=== PATIENT | male | born 1985 | race African-American/Black ===

== ENCOUNTER 2019-01-25 21:05 | Observation (INO) | payer MEDICARE ==
--- NOTE | 2019-01-25 21:17 | PDOC ---
Rapid Medical Evaluation Time Seen by Provider: 01/25/19 21:14 Medical Evaluation: 01/25/19 21:14 I have performed a brief in-person evaluation of this patient. The patient presents with a chief complaint of: Epigastric pain, possibly worse w/ food. Noticed that pain started shortly after pt started taking excedrin 2 week ago for dental pain. No change in BM, melena, BRBPR, n/v/f/c or SOB. No h/ o similar pain. Of note, seen by dental for toothache and told needs a root canal vs filling, pt to f/u Pertinent physical exam findings:stable and well cristofer w/ benign abd I have ordered the following:EKG The patient will proceed to the ED for further evaluation. Discharge Disposition - Diagnosis Epigastric pain - Referrals - Patient Instructions - Post Discharge Activity
[2019-01-25] MEDS ORDERED: TICAGRELOR 90 MG TABLET PO ONE ×2 (21:52→22:25)
[2019-01-25] MEDS ORDERED: ASPIRIN 81 MG CHEWABLE TABLETS PO ONE (21:52)
[2019-01-25] MEDS ORDERED: HEPARIN NA (PORCINE) 5,000 UNITS/ML 1ML VIAL IVPUSH ONE (21:52)
--- NOTE | 2019-01-25 21:58 | PDOC ---
History of Present Illness - General Chief Complaint: Pain Stated Complaint: ABD PAIN Time Seen by Provider: 01/25/19 21:14 History Source: Patient Exam Limitations: No Limitations - History of Present Illness Initial Comments: 01/25/19 21:54 HPI 33 YO AAM with no known medical history presenting with epigastric pain/mid sternal chest pain x 1 week, no radiating sx. sx worse with food. has been taking excedrin 2 tablets BID for his epigastric pain, making symptoms worse; he has been taking excedrin for his wisdom tooth ache, right lower molar. no family history of CAD/OK. Denies fever, chills, SOB, palpitation, dizziness, weakness, N, V, D, abdominal pain, bladder and bowel problems, leg swelling, No new changes in medications. No suspicious food intake Allergies: None Past Medical History: as documented in EMR/HPI Social history: No tobacco, or drug use. no cocaine or amphetamines; occasional etoh Surgical history: none Meds: as documented in EMR Review of systems Constitutional: no fevers or chills. HEENT: no headache or dizziness. No congestion. No visual/hearing disturbances. CVS: no syncope. +chest pain. Resp: no sob. No cough. Gastrointestinal: no nausea or vomiting, diarrhea. +abdominal pain. Genitourinary: no urinary sx, hematuria. MUSCULOSKELETAL: No joint pain and swelling. No neck or back pain. SKIN: no redness or skin changes, no discharge, no rash. No wounds. Hematologic: no easy bruising/bleeding. NEUROLOGIC: No headache, dizziness, LOC or altered mental status. No weakness, numbness or tingling. Psych: no anxiety or depression Allergic/Immunologic: no allergies All other systems reviewed and negative, or as documented in HPI. Physical exam: General: Well appearing, awake and alert, NAD. HEENT: NCAT, PERRL, EOMI, clear conjunctiva, anicteric, moist mucus membranes, clear oropharynx, no oral lesions.. Neck: neck supple, FROM Resp: CTAB, normal and even respirations, no respiratory distress CVS: RRR, no murmurs, 2+ peripheral pulses throughout, no peripheral edema Abdomen: soft, nondistended, +epigastric TTP, no peritoneal signs. Back: nontender, normal inspection and ROM MSK: no edema, ANTHONY x4, ROM intact. No clubbing or cyanosis. normal bulk and tone. Neuro: alert, no focal neuro deficits. Skin: warm and well perfused, cap refill <2 sec, normal color 01/25/19 22:33 01/25/19 23:59 Past History - Past Medical History Allergies/Adverse Reactions: Allergies Allergy/AdvReac Type Severity Reaction Status Date / Time No Known Allergies Allergy Verified 01/25/19 21:15 COPD: No - Suicide/Smoking/Psychosocial Hx Smoking History: Never smoked *Physical Exam - Vital Signs Last Vital Signs Temp Pulse Resp BP Pulse Ox 98.0 F 85 18 156/88 100 01/25/19 21:11 01/25/19 21:11 01/25/19 21:11 01/25/19 21:11 01/25/19 21:11 Heart Score/ECG Review #1 ECG reviewed & interpreted by me at: 21:35 General ECG Interpretation: Sinus Rhythm, Normal Rate, Normal Intervals Compared to previous ECG there are: Previous ECG unavail 01/25/19 21:59 EKG with NSR 70 bpm, ST elevations in V1-V3, I, AVL and upsloping, with reciprocal ST depression in III, AVF and TWI, nonspecific T wave flattening. normal intervals. ED Treatment Course - LABORATORY CBC & Chemistry Diagram: 01/25/19 22:26 01/25/19 22:26 - RADIOLOGY Radiology Studies Ordered: Category Date Time Status CHEST X-RAY PORTABLE* [RAD] Stat Radiology 01/25/19 21:52 Ordered Medical Decision Making - Medical Decision Making 01/25/19 21:57 DDx chest pain: ACS, coronary vasospasm, NSTEMI, arrhythmia, unstable angina, PE , dissection, PUD, esophageal spasm, GERD, gastritis, costochondritis, pneumonia , pleurisy, pericarditis/myocarditis. dehydration, electrolyte/metabolic derangements. VS reviewed wnl. EKG with NSR 70 bpm, ST elevations in V1-V3, I, AVL and upsloping, with reciprocal ST depression in III, AVF and TWI, nonspecific T wave flattening. normal intervals. given EKG and symptoms tele monitor, mildly hypertensive Oleg transfer for code Red/STEMI alert emergently based on atypical sx and abnormal EKG 01/25/19 21:59 called and spoke with monte cards, interventionalist Dr Ling and fellow Dr New - reviewed EKG, deemed not stemi alert, and more likely SENG will await trop, reassess and repeat EKG code red cancelled in interim. 01/26/19 00:00 - on reeval, sx improved with GI cocktail; ddx narrowed to GERD/ gastritis vs dyspepsia, medication effect from NSAIDS vs atypical ACS/coronary vasospasm. trop neg, repeat EKG unchanged however, due to abnormal EKG, SENG vs ischemia, and atypical sx. warrants obs tele for r/o ACS, serial trop/EKG and echo Admit for atypical cp,epigastric pain. Discussed results and management plan with pt and family member at bedside, agree with impression, treatment indications, recommendations and plan. admit to hospitalist service, Dr Davenport *DC/Admit/Observation/Transfer Diagnosis at time of Disposition: Epigastric pain, Abnormal EKG - Discharge Dispostion Condition at time of disposition: Fair Decision to Admit order: Yes Decision to Admit order Date/Time: 01/26/19 00:02 Decision to Admit Order Category Date Time Status Decision to Admit to Hospital Routine Admission 01/25/19 23:59 Ordered - Referrals - Patient Instructions - Post Discharge Activity
[2019-01-25] MEDS ORDERED: ASPIRIN 81 MG CHEWABLE TABLETS ONE (22:24)
[2019-01-25] MEDS ORDERED: HEPARIN NA (PORCINE) 5,000 UNITS/ML 1ML VIAL ONE (22:26)
[2019-01-25 22:31] LABS: BASO % 0.6 % (0-2.0); EOS % 1.4 % (0-4.5); HEMATOCRIT 45.4 % (35.4-49); HEMOGLOBIN 14.3 GM/dL (11.7-16.9); MCH 23.5 pg (25.7-33.7); MCHC 31.6 g/dl (32.0-35.9); MEAN CELL VOLUME 74.4 fl (80-96); MEAN PLT VOLUME 8.3 fl (7.5-11.1); MONO % 8.6 % (3.8-10.2); NEUT % 54.4 % (42.8-82.8); PLATELET COUNT 226 K/MM3 (134-434); RDW 15.2 % (11.9-15.9); WHITE BLOOD COUNT 6.2 K/mm3 (4.0-10.0)
[2019-01-25] MEDS ORDERED: MAG HYDROX/AL HYDROX/SIMETH 30 ML UNIT-DOSE CUP PO ONE ×2 (22:35)
[2019-01-25 22:52] LABS: INR 1.02 (0.83-1.09)
[2019-01-25 23:07] LABS: ALBUMIN 4.2 g/dl (3.4-5.0); ALK PHOS 98 U/L (45-117); ANION GAP 6 MMOL/L (8-16); BILIRUBIN,TOTAL 0.3 mg/dL (0.2-1); BLOOD UREA NITROGEN 12.8 mg/dL (7-18); CHLORIDE 106 mmol/L (98-107); CO2 29 mmol/L (21-32); CREATININE 0.9 mg/dL (0.55-1.3); GLUCOSE,RANDOM 110 mg/dL (74-106); MAGNESIUM 2.4 mg/dL (1.8-2.4); POTASSIUM 4.4 mmol/L (3.5-5.1); SGOT/AST 26 U/L (15-37); SGPT/ALT 44 U/L (13-61); SODIUM 140 mmol/L (136-145); TOT PROT 7.5 g/dl (6.4-8.2)
[2019-01-25] MEDS ORDERED: MAG HYDROX/AL HYDROX/SIMETH 30 ML UNIT-DOSE CUP ONE (23:17)
--- NOTE | 2019-01-25 23:20 | PN ---
Teaching Attending Note Name of Resident: Messi Greco ATTENDING PHYSICIAN STATEMENT I saw and evaluated the patient. I reviewed the resident's note and discussed the case with the resident. I agree with the resident's findings and plan as documented. SUBJECTIVE: Patient is a 33 year old man with no significant PMH who presents with epigastric pain/mid sternal chest pain for 1 week. Pain in nonradiating. He started taking Excedrin for toothache 2 weeks ago and his epigastric pain started one week later. He continued to take Excedrin and it made his pain worse and food also made it worse. No family history of premature CAD/SD. Denies fever, chills, SOB, palpitation, dizziness, weakness, nausea, vomiting, diarrhea, bladder and bowel problems or leg swelling, No new changes in medications and no unusual or street food intake. Nonsmoker and denies alcohol abuse or use of any illicit drugs. OBJECTIVE: Alert Vital Signs Period Temp Pulse Resp BP Sys/Castañeda Pulse Ox Last 24 Hr 98.0 F 85 18 156/88 100 HEENT: No Jaundice, eye redness or discharge, PERRLA, EOMI. Normocephalic, atraumatic. External ears are normal and hearing is grossly intact. No nasal discharge. Neck: Supple, nontender. No palpable adenopathy or thyromegaly. No JVD Chest: Good effort. Clear to auscultation and percussion. Heart: Regular. No S3, rub or murmur Abdomen: Not distended, soft, epigastric tenderness and no HSM. No rebound or guarding. Normal bowel sounds. Ext: Peripheral pulses intact. No leg edema. Skin: Warm and dry. No petechiae, rash or ecchymosis. Neuro: Alert. Oriented x3. CN 2-12 grossly intact. Sensation grossly intact in all four extremities and DTR are symmetric. Psych: Appropriate mood and affect. Good insight. Abnormal Lab Results 01/25/19 01/25/19 22:26 22:26 RBC 6.10 H MCV 74.4 L MCH 23.5 L MCHC 31.6 L Anion Gap 6 L Random Glucose 110 H Creatine Kinase 392 H ASSESSMENT AND PLAN: 1. Chest/epigastric pain - Pain atypical. Likely due to gastritis induced by Excedrin. Feeling better. Initial troponin is negative. EKG shows NSR 70 bpm, with ST elevations in V1-V3, I, AVL and ST depression in III, AVF and TWI; nonspecific T wave flattening. ER staff spoke with the jalousie installer and no additional intervention recommended at this time. Will monitor on telemetry, repeat EKG and troponin and get ECHO and urinalysis. He got Aspirin 162 mg, Brilinta, Heparin IV bolus and Mylanta in the ER. No acute abnormality on CXR. Counseled to avoid NSAIDS. Will trend CPK, give IV protonix and consult GI. Unclear if he has undiagnosed hypertension. Will monitor BP closely to decide if drug therapy is warranted. In the meantime, nonpharmacologic measures to control hypertension like weight loss, salt restriction and exercise discussed. 2. Obesity Counseled on the risks associated with obesity. Will provide patient all the necessary assistance, counseling and positive reinforcement to facilitate weight loss. Consult milking worker. 3. DVT prophylaxis - Lovenox 40 mg SQ q 24 hours. 4. Advance directives - Full code
--- NOTE | 2019-01-26 02:06 | HP ---
CHIEF COMPLAINT: Mid-Epigastric pain. HISTORY OF PRESENT ILLNESS: Pt is a 33 y/o M with no significant past medical history who presented to [facility] [place] due to mid-epigastric pain which has been present for 1 and a half weeks. Pt endorses that pain suddenly arose and is described as nonradiating, sharp, and a 7/10 in severity at it's peak. Pt endorses that he has been taking Excedrin during this time period as he has been suffering from a toothache. Pain is exacerbated by the excedrin. Pt denies ever experiencing this type of pain in the past. Denies shortness of breath, LOC, nausea/vomiting, or palpitations. Denies illicit drug use. PMH- None Social Hx- Denies tobacco or illicit drug use. Social Drinker SurgHx- Denies Allergies- Denies FH- Father healthy, Mother past away in car accident ER course was notable for: (1) ASA 162, Brilinta, Heparin Bolus (2) EKG: NSR 70 bpm, with ST elevations in V1-V3, I, AVL and ST depression in III, AVF and TWI; nonspecific T wave flattening. (3) HOME MEDICATIONS: REVIEW OF SYSTEMS CONSTITUTIONAL: Absent: fever, chills, diaphoresis, generalized weakness, malaise, loss of appetite, weight change HEENT: Absent: rhinorrhea, nasal congestion, throat pain, throat swelling, difficulty swallowing, mouth swelling, ear pain, eye pain, visual changes CARDIOVASCULAR: PRESENT chest pain RESPIRATORY: Absent: cough, shortness of breath, dyspnea with exertion, orthopnea, wheezing, stridor, hemoptysis GASTROINTESTINAL: Absent: abdominal pain, abdominal distension, nausea, vomiting, diarrhea, constipation, melena, hematochezia GENITOURINARY: Absent: dysuria, frequency, urgency, hesitancy, hematuria, flank pain, genital pain MUSCULOSKELETAL: Absent: myalgia, arthralgia, joint swelling, back pain, neck pain SKIN: Absent: rash, itching, pallor HEMATOLOGIC/IMMUNOLOGIC: Absent: easy bleeding, easy bruising, lymphadenopathy, frequent infections ENDOCRINE: Absent: unexplained weight gain, unexplained weight loss, heat intolerance, cold intolerance NEUROLOGIC: Absent: headache, focal weakness or paresthesias, dizziness, unsteady gait, seizure, mental status changes, bladder or bowel incontinence PSYCHIATRIC: Absent: anxiety, depression, suicidal or homicidal ideation, hallucinations. PHYSICAL EXAMINATION Vital Signs - 24 hr 01/25/19 21:11 Temperature 98.0 F Pulse Rate 85 Respiratory 18 Rate Blood Pressure 156/88 O2 Sat by Pulse 100 Oximetry (%) GENERAL: NAD HEAD: Normal with no signs of trauma. EYES:EOMI Sclera Clear EARS, NOSE, THROAT: MMM. NECK: Supple, No JVD appreciated. LUNGS: CTAB HEART: RRR S1S2. +TTP. ABDOMEN: Mid-epigastric tenderness. MUSCULOSKELETAL: FROM throughout LOWER EXTREMITIES: No CCE. NEUROLOGICAL: Cranial nerves II-XII intact. Normal speech. PSYCHIATRIC: Cooperative. Good eye contact. Appropriate mood and affect. SKIN: Warm, dry, normal turgor, no rashes or lesions noted, normal capillary refill. Laboratory Results - last 24 hr 01/25/19 01/25/19 01/25/19 22:26 22:26 22:26 WBC 6.2 RBC 6.10 H Hgb 14.3 Hct 45.4 MCV 74.4 L MCH 23.5 L MCHC 31.6 L RDW 15.2 Plt Count 226 MPV 8.3 Absolute Neuts (auto) 3.4 Neutrophils % 54.4 Lymphocytes % 35.0 Monocytes % 8.6 Eosinophils % 1.4 Basophils % 0.6 Nucleated RBC % 0 PT with INR 12.00 INR 1.02 Sodium 140 Potassium 4.4 Chloride 106 Carbon Dioxide 29 Anion Gap 6 L BUN 12.8 Creatinine 0.9 Est GFR (CKD-EPI)AfAm 127.80 Est GFR (CKD-EPI)NonAf 110.27 Random Glucose 110 H Calcium 9.0 Magnesium 2.4 Total Bilirubin 0.3 AST 26 ALT 44 Alkaline Phosphatase 98 Creatine Kinase 392 H Creatine Kinase Index 0.3 CK-MB (CK-2) 1.3 Troponin I < 0.02 Total Protein 7.5 Albumin 4.2 Lipase 01/25/19 22:26 WBC RBC Hgb Hct MCV MCH MCHC RDW Plt Count MPV Absolute Neuts (auto) Neutrophils % Lymphocytes % Monocytes % Eosinophils % Basophils % Nucleated RBC % PT with INR INR Sodium Potassium Chloride Carbon Dioxide Anion Gap BUN Creatinine Est GFR (CKD-EPI)AfAm Est GFR (CKD-EPI)NonAf Random Glucose Calcium Magnesium Total Bilirubin AST ALT Alkaline Phosphatase Creatine Kinase Creatine Kinase Index CK-MB (CK-2) Troponin I Total Protein Albumin Lipase 321 ASSESSMENT/PLAN: Pt is a 33 y/o M with no significant past medical history who presented to [facility] [place] due to mid-epigastric pain which has been present for 1 and a half weeks. #Atypical Chest Pain - EKG---> NSR 70 bpm, with ST elevations in V1-V3, I, AVL and ST depression in III, AVF and TWI; nonspecific T wave flattening. -Initial Trop Negative. Repeat pending. -Cardiology Consult -Echocardiogram -Tele monitoring -I.V Protonix. Day team to consider G.I Consult. #FEN No Fluids Monitor Electrolytes Regular Diet #DVT ppx: Lovenox SQ #Dispo: Tele Visit type - Emergency Visit Emergency Visit: Yes ED Registration Date: 01/25/19 Care time: The patient presented to the Emergency Department on the above date and was hospitalized for further evaluation of their emergent condition. - New Patient This patient is new to me today: Yes Date on this admission: 01/26/19 - Critical Care Critical Care patient: No
[2019-01-26 05:20] VITALS: BMI 32.2
--- NOTE | 2019-01-26 08:20 | PN ---
Progress Note (short form) - Note Progress Note: Patient is comfortable with no acute distress, feels better, stated that started to take Exedrin for his toothache that he had, ever since then started to bother his stomach. Denies having any chills or shortness of brain, no nausea or vomiting. Vital Signs Temperature 97.8 F 01/26/19 04:30 Pulse Rate 84 01/26/19 04:30 Respiratory Rate 20 01/26/19 04:30 Blood Pressure 122/74 01/26/19 04:30 O2 Sat by Pulse Oximetry (%) 98 01/26/19 04:30 GENERAL: The patient is awake, alert, and fully oriented, in no acute distress. HEAD: Normal with no signs of trauma. EYES: PERRL, extraocular movements intact, sclera anicteric, conjunctiva clear. ENT: Ears normal, oropharynx clear without exudates, moist mucous membranes. NECK: Trachea midline, full range of motion, supple. LUNGS: Breath sounds equal, clear to auscultation bilaterally, no wheezes, no crackles, no accessory muscle use. HEART: Regular rate and rhythm, S1, S2 without murmur, rub or gallop. ABDOMEN: Soft, nontender, nondistended, normoactive bowel sounds, no guarding, no rebound, no hepatosplenomegaly, no masses. EXTREMITIES: 2+ pulses, warm, well-perfused, no edema. NEUROLOGICAL: Cranial nerves II through XII grossly intact. Normal speech, gait not observed. PSYCH: Normal mood, normal affect. SKIN: Warm, dry, normal turgor, no rashes or lesions noted CBCD WBC 6.2 K/mm3 (4.0-10.0) 01/25/19 22: RBC 6.10 M/mm3 (4.00-5.60) H 01/25/19 22: Hgb 14.3 GM/dL (11.7-16.9) 01/25/19 22: Hct 45.4 % (35.4-49) 01/25/19 22: MCV 74.4 fl (80-96) L 01/25/19 22: MCHC 31.6 g/dl (32.0-35.9) L 01/25/19 22: RDW 15.2 % (11.9-15.9) 01/25/19 22:26 Plt Count 226 K/MM3 (134-434) 01/25/19 22:26 MPV 8.3 fl (7.5-11.1) 01/25/19 22:26 CMP Sodium 140 mmol/L (136-145) 01/25/19 22:26 Potassium 4.4 mmol/L (3.5-5.1) 01/25/19 22:26 Chloride 106 mmol/L (98-107) 01/25/19 22:26 Carbon Dioxide 29 mmol/L (21-32) 01/25/19 22:26 Anion Gap 6 MMOL/L (8-16) L 01/25/19 22:26 BUN 12.8 mg/dL (7-18) 01/25/19 22:26 Creatinine 0.9 mg/dL (0.55-1.3) 01/25/19 22:26 Random Glucose 110 mg/dL (74-106) H 01/25/19 22:26 Calcium 9.0 mg/dL (8.5-10.1) 01/25/19 22:26 Total Bilirubin 0.3 mg/dL (0.2-1) 01/25/19 22:26 AST 26 U/L (15-37) 01/25/19 22:26 ALT 44 U/L (13-61) 01/25/19 22:26 Alkaline Phosphatase 98 U/L (45-117) 01/25/19 22:26 Total Protein 7.5 g/dl (6.4-8.2) 01/25/19 22:26 Albumin 4.2 g/dl (3.4-5.0) 01/25/19 22:26 CARDIAC ENZYMES Creatine Kinase 392 U/L (26-308) H 01/25/19 22:26 Troponin I < 0.02 ng/ml (0.00-0.05) 01/25/19 22:26 Current Medications Generic Name Dose Route Start Last Admin Trade Name Freq PRN Reason Stop Dose Admin Enoxaparin Sodium 40 mg 01/26/19 10:00 Lovenox - SQ DAILY MANDIE Pantoprazole Sodium 40 mg 01/26/19 10:00 Protonix Iv IVPUSH DAILY MANDIE Home Medications Medication Instructions Recorded NK [No Known Home Medication] 01/26/19 EKG---> reviewed with Assessment and plan: Patient is a 33yo male with no significant past medical history who presented to ED. for having mid-epigastric pain which started after started taking Excedrin for having dental pain. # Midepigastric pain most likely due to having gastritis due to Exedrin/Nsaids use. will start the patient on Zantac po 150mg bid will repeat the EKG and troponins if all neg. will dc patient home as per discussion with . DVT ppx: Lovenox SQ Visit type - Emergency Visit Emergency Visit: Yes ED Registration Date: 01/25/19 Care time: The patient presented to the Emergency Department on the above date and was hospitalized for further evaluation of their emergent condition. - New Patient This patient is new to me today: Yes Date on this admission: 01/26/19 - Critical Care Critical Care patient: No - Discharge Referral Referred to [facility] No
[2019-01-26 08:33] LABS: BASO % 0.4 % (0-2.0); EOS % 1.2 % (0-4.5); HEMATOCRIT 45.2 % (35.4-49); HEMOGLOBIN 14.4 GM/dL (11.7-16.9); MCH 23.5 pg (25.7-33.7); MCHC 31.8 g/dl (32.0-35.9); MEAN CELL VOLUME 73.7 fl (80-96); MEAN PLT VOLUME 8.8 fl (7.5-11.1); MONO % 9.4 % (3.8-10.2); PLATELET COUNT 242 K/MM3 (134-434); RBC 6.14 M/mm3 (4.00-5.60); RDW 14.9 % (11.9-15.9)
[2019-01-26 08:54] LABS: ALBUMIN 4.2 g/dl (3.4-5.0); BILIRUBIN,TOTAL 0.4 mg/dL (0.2-1); BLOOD UREA NITROGEN 11.2 mg/dL (7-18); CALCIUM 9.1 mg/dL (8.5-10.1); CREATININE 0.8 mg/dL (0.55-1.3); MAGNESIUM 2.7 mg/dL (1.8-2.4); PHOSPHOROUS 3.7 mg/dL (2.5-4.9); POTASSIUM 4.6 mmol/L (3.5-5.1); TOT PROT 7.5 g/dl (6.4-8.2)
[2019-01-26 09:11] LABS: ACTIVATED PTT 28.7 SECONDS (25.2-36.5)
[2019-01-26 09:12] LABS: INR 0.98 (0.83-1.09); PROTHROMBIN TIME (PATIENT) 11.6 SEC (9.7-13.0)
[2019-01-26] MEDS: ENOXAPARIN NA (PORCINE) 40 MG/0.4 ML DISP.SYRIN SQ SCH (09:59)
[2019-01-26] MEDS: RANITIDINE HCL 150 MG TABLET (FP) PO SCH ×2 (09:59→21:58)
[2019-01-26] MEDS ORDERED: PANTOPRAZOLE SODIUM 40 MG VIAL IVPUSH SCH (10:00)
--- NOTE | 2019-01-26 10:12 | CON.CARD ---
Consult Consult Specialty:: Cardiology Referred by:: Dr. Knowles Reason for Consultation:: Abnl ECG - History of Present Illness Chief Complaint: Epigastric pain History of Present Illness: 33M with no PMH has been taking Excedrin three times a day for several weeks to control pain from exposed nerve in wisdom tooth. Over last few days + epigastric sharp pain/ burning, tender to touch. Denies exertional CP, SOB, palps, PND, orthopnea. No HTN, DM, smoking, no early CAD hx. ECG showed diffuse early repol changes, most prominently in I, avL. 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: Alzheimer's, CVA, Dementia, Migraine, Multiple Sclerosis, Peripheral Neuropathy, Parkinson's, Seizure, Syncope, TIA, Vertigo, Other Cardio/Vascular: No: AFIB, Aneurysm, Aortic Insufficiency, Aortic Stenosis, CAD , CHF, Deep Vein Thrombosis, HTN, Hyperlipdemia, OR, Mitral Insufficiency, Mitral Stenosis, Murmur, Pulmonary Hypertension, Other Pulmonary: No: Asthma, Bronchitis, Cancer, COPD, O2 Dependent, Pneumonia, Previously Intubated, Pulmonary Embolus, Pulmonary Fibrosis, Sleep Apnea, Other Gastrointestinal: No: Ascites, Cancer, Constipation, Crohn's Disease, Diverticulitis, Diverticulosis, Esophageal Varices, Gastritis, GERD, GI Bleed, Hemorrhoids, Hiatal Hernia, Inflamatory Bowel Disease, Irritable Bowel Disease, Pancreatitis, Peptic Ulcer Disease, Ulcerative Colitis, Other Hepatobiliary: No: Cirrhosis, Cholelithiasis, Cholecystitis, Choledocholithiasis , Hepatitis A, Hepatitis B, Hepatitis C, Other Renal/: No: Renal Failure, Renal Inusuff, BPH, Cancer, Hematuria, Hemodialysis , Neurogenic Bladder, Renal Calculi, UTI, Other Heme/Onc: No: Anemia, B12 Deficiency, Bleeding Disorder, Cancer, Current Chemotherapy, Current Radiation Therapy, Hemochromatosis, Hypercoaguable State, Myeloproliferative Synd, Sickle Cell Disease, Sickle Cell Trait, Thrombocytopenia, Other Infectious Disease: No: AIDS, C-Diff, Herpes Zoster, HIV, MRSA, STD's, Tuberculosis, VREF, Other Psych: No: Addictions, Anxiety, Bipolar, Depression, Panic, Psychosis, Schizophrenia, Other Musculoskeletal: No: Bursitis, Chronic low back pain, Hemiparesis, Hemiplegia, Osteoarthritis, Paraplegia, Other Rheumatology: No: Fibromyalgia, Gout, Lupus, Rheumatoid Arthritis, Sarcoidosis, Vasculitis, Other ENT: No: Allergic Rhinitis, Sinusitis, Other Endocrine: No: Chepe's Disease, [place]'s Disease, Diabetes Insipidus, Diabetes Mellitus, Hyperparathyroidism, Hyperthyroidism, Hypothyroidism, Osteopenia, SIADH, Other Dermatology: No: Basal Cell, Cellulitis, Eczema, Melanoma, Psoriasis, Squamous Cell, Other - Past Surgical History Past Surgical History: No: None, AAA Repair, AICD, Amputation, Appendectomy, Arthrosocopy, AV Fistula/Graft, Bariatric Surgery, Breast Biopsy, Bypass, CABG, Carotid Endarterectomy, Cataract Removal, Cholecystectomy, Colectomy, Colonoscopy, Colostomy, Craniotomy, , Cystectomy, Hernia Repair, Hysterectomy, Ileal Conduit, Ileosotomy, Joint Replacement, Kidney Transplant, Laminectomy, Liver Transplant, Mastectomy, Nephrectomy, Oopherectomy, Orchiectomy, Permanent Pacemaker, Prostatectomy, Splenectomy, Stent, Thoracotomy , TURP, Tonsillectomy, Tubal Ligation, Upper Endoscopy, Valve Replacement, Vasectomy, Vein Stripping/Ligation - Alcohol/Substance Use Hx Alcohol Use: Yes - Smoking History Smoking history: Never smoked - Social History History of Recent Travel: No Home Medications - Allergies Allergies/Adverse Reactions: Allergies Allergy/AdvReac Type Severity Reaction Status Date / Time No Known Allergies Allergy Verified 01/25/19 21:15 - Home Medications Home Medications: Ambulatory Orders NK [No Known Home Medication] 01/26/19 Family Disease History - Family Disease History Family History: Unremarkable Review of Systems - Review of Systems Constitutional: reports: No Symptoms Eyes: reports: No Symptoms HENT: reports: No Symptoms Neck: reports: No Symptoms Cardiovascular: reports: No Symptoms Respiratory: reports: No Symptoms Gastrointestinal: reports: Abdominal Pain Genitourinary: denies: No Symptoms, Burning, Discharge, Dysuria, Flank Pain, Frequency, Hematuria, Incontinence, Lesions, Menses, Pain, Testicular Mass, Testicular Pain, Testicular Swelling, Urgency, Vaginal Bleeding, Other Breasts: denies: No Symptoms Reported, See HPI, Breast Implants, Discharge from Nipple, Lumps, Pain, Skin Changes, Other Musculoskeletal: denies: No Symptoms, Back Pain, Crepitus, Decreased ROM, Extremity Pain, Joint Pain, Joint Swelling, Muscle Pain, Muscle Cramps, Muscle Weakness, Other Neurological: denies: No Symptoms, Change in LOC, Change in Speech, Confusion, Dizziness, Headache, Incoordination, Numbness, Parasthesia, Pre-Existing Deficit , Seizure, Syncope, Tremors, Unsteady Gait, Weakness, Other Endocrine: denies: No Symptoms, Excessive Sweating, Flushing, Increased Hunger, Increased Thirst, Intolerance to Cold, Intolerance to Heat, Unexplained Weight Gain, Unexplained Weight Loss, Other Hematology/Lymphatic: denies: No Symptoms, Easily Bruised, Excessive Bleeding, Swollen Glands, Other Psychiatric: denies: No Symptoms, Altered Sleep Pattern, Anxiety, Depression, Hallucinations, Panic, Paranoia, Suicidal, Other Vital Signs: Vital Signs Temperature 97.8 F 01/26/19 04:30 Pulse Rate 84 01/26/19 04:30 Respiratory Rate 20 01/26/19 04:30 Blood Pressure 122/74 01/26/19 04:30 O2 Sat by Pulse Oximetry (%) 98 01/26/19 04:30 Constitutional: Yes: No Distress, Calm Eyes: Yes: Conjunctiva Clear, EOM Intact HENT: Yes: Atraumatic Neck: Yes: Trachea Midline Respiratory: Yes: CTA Bilaterally Gastrointestinal: Yes: Soft Cardiovascular: Yes: Regular Rate and Rhythm JVD: No Carotid Bruit: No PMI: Non-Displaced Heart Sounds: Yes: S1, S2 Musculoskeletal: Yes: WNL Extremities: Yes: WNL Edema: No Peripheral Pulses WNL: Yes Neurological: Yes: Alert, Oriented ...Motor Strength: WNL - Other Data Labs, Other Data: CBC, BMP 01/26/19 05:40 01/26/19 05:40 INR, PTT INR 0.98 (0.83-1.09) 01/26/19 05:40 Troponin, BNP 01/25/19 01/26/19 22:26 05:40 Troponin I < 0.02 < 0.02 Troponin, BNP 01/25/19 01/26/19 22:26 05:40 Troponin I < 0.02 < 0.02 As in HPI Imaging - Results Chest X-ray: Pending EKG: Image Reviewed Assessment/Plan IMP: 1. Suspected gastritis secondary to frequent use Excedrin (contains ASA) 2. Abnl baseline ECG, probably his baseline: diffuse early repol changes. Do not suspect ACS. REC: 1. D/C Excedrin, NSAIDS 2. Trial PPI 3. Serial cardiac enzymes, to complete 3 sets with serial ECGs: repeat another today and in AM 4. Telemetry 5. Ambulation If enzymes negative and ECGs stable, ok for d/c in AM with close outpt f/u for echo.
--- NOTE | 2019-01-26 10:34 | EKG ---
Test Reason : Blood Pressure : / mmHG Vent. Rate : 078 BPM Atrial Rate : 078 BPM P-R Int : 152 ms QRS Dur : 092 ms QT Int : 390 ms P-R-T Axes : 050 035 001 degrees QTc Int : 444 ms POOR DATA QUALITY, INTERPRETATION MAY BE ADVERSELY AFFECTED NORMAL SINUS RHYTHM ST ELEVATION, CONSIDER EARLY REPOLARIZATION, PERICARDITIS, OR INJURY CLINICAL CORRELATION IS RECOMMENDED Confirmed by RENNY GARCIA MD ([id number]) on 01/26/2019 10:34:29 AM Referred By: Confirmed By:RENNY GARCIA MD
--- NOTE | 2019-01-26 10:35 | EKG ---
Test Reason : Blood Pressure : / mmHG Vent. Rate : 082 BPM Atrial Rate : 082 BPM P-R Int : 152 ms QRS Dur : 080 ms QT Int : 368 ms P-R-T Axes : 037 014 -03 degrees QTc Int : 429 ms NORMAL SINUS RHYTHM MODERATE VOLTAGE CRITERIA FOR LVH, MAY BE NORMAL VARIANT ST ELEVATION, CONSIDER EARLY REPOLARIZATION, PERICARDITIS, OR INJURY ABNORMAL ECG WHEN COMPARED WITH ECG OF 25-JAN-2019 21:35, NO SIGNIFICANT CHANGE WAS FOUND Confirmed by RENNY GARCIA MD ([id number]) on 01/26/2019 10:35:00 AM Referred By: Confirmed By:RENNY GARCIA MD
--- NOTE | 2019-01-26 12:42 | EKG ---
Test Reason : Blood Pressure : / mmHG Vent. Rate : 070 BPM Atrial Rate : 070 BPM P-R Int : 154 ms QRS Dur : 090 ms QT Int : 374 ms P-R-T Axes : 034 018 -14 degrees QTc Int : 403 ms NORMAL SINUS RHYTHM WITH SINUS ARRHYTHMIA MODERATE VOLTAGE CRITERIA FOR LVH, MAY BE NORMAL VARIANT ST ELEVATION, CONSIDER EARLY REPOLARIZATION, PERICARDITIS, OR INJURY CLINICAL CORRELATION IS RECOMMENDED ABNORMAL ECG NO PREVIOUS ECGS AVAILABLE Confirmed by RENNY GARCIA MD ([id number]) on 01/26/2019 12:42:20 PM Referred By: Confirmed By:RENNY GARCIA MD
[2019-01-27 10:24] VITALS: BP 118/60; PULSE 78; TEMP 99
--- NOTE | 2019-01-27 10:35 | DS ---
Physical Exam: SUBJECTIVE: Patient seen and examined at bedside. no cp. no complaints. denies fever, sob, cp, abd pain n/v/d OBJECTIVE: Vital Signs Period Temp Pulse Resp BP Sys/Castañeda Pulse Ox Last 24 Hr 97.4 F-99 F 75-88 18-20 111-132/59-80 97-100 PHYSICAL EXAM GENERAL: The patient is awake, alert, and fully oriented, in no acute distress. HEAD: Normal with no signs of trauma. EYES: PERRL, extraocular movements intact, sclera anicteric, conjunctiva clear. ENT: Ears normal, nares patent, oropharynx clear without exudates, moist mucous membranes. NECK: Trachea midline, full range of motion, supple. LUNGS: Breath sounds equal, clear to auscultation bilaterally, no wheezes, no crackles, no accessory muscle use. HEART: Regular rate and rhythm, S1, S2 without murmur, rub or gallop. ABDOMEN: Soft, nontender, nondistended, normoactive bowel sounds, no guarding, no rebound, no hepatosplenomegaly, no masses. EXTREMITIES: 2+ pulses, warm, well-perfused, no edema. NEUROLOGICAL: Cranial nerves II through XII grossly intact. Normal speech, gait not observed. PSYCH: Normal mood, normal affect. SKIN: Warm, dry, normal turgor, no rashes or lesions noted. LABS Laboratory Results - last 24 hr 01/26/19 01/26/19 14:54 21:25 Creatine Kinase 300 277 Creatine Kinase Index 0.3 0.3 CK-MB (CK-2) < 1.0 < 1.0 Troponin I < 0.02 < 0.02 HOSPITAL COURSE: Date of Admission:01/25/19 Date of Discharge: 01/27/19 33 y/o M with no significant past medical history who presented to [facility] [place] due to mid-epigastric pain which has been present for 1 and a half weeks which started after started taking Excedrin Admitted to tele for Midepigastric pain/ r/o ACS. Pain most likely due to having gastritis due to Exedrin/Nsaids use. EKG---> NSR 70 bpm, with ST elevations in V1-V3, I, AVL and ST depression in III, AVF and TWI; nonspecific T wave flattening. trop neg x4. no events on tele. cardio consulted, rigo , Do not suspect ACS, Abnl baseline ECG, probably his baseline: diffuse early repol changes. pain resolved w/ PPI trial. pt informed to avoid NSAIDS, and will be dcd w/ Zantac po 150mg bid for 14d. pt will f/u outpt w/ cardio Dr De Leon for outpt echo. pt given GI referral in case GI sxs persist pt stable and ready for dc w/ appropriate f/u Minutes to complete discharge: 36 Discharge Summary Reason For Visit: ABNORMAL ELECTROCARDIOGRAPHY, EPIGASTRIC PAIN Current Active Problems Abnormal EKG (Acute) Epigastric pain (Acute) Condition: Stable - Instructions Diet, Activity, Other Instructions: you came in for stomach and chest pain. you did not have a heart attack please stop taking NSAIDS such as advil, ibuprofen, excedrin as this can irritate your stomach and cause you pain and give you an ulcer or a GI bleed please take zantac 150mg twice a day for 14 days please follow up with your pcp in 1 week please follow up with ese teacher Dr Jade in 1 week for an ultrasound of your heart to make sure your heart function is ok please follow up with gastro enterologist Dr Soto in 2 weeks if you still have abdominal pain or have blood in your stools if you experience worsening chest pain, shortness of breath, blood in stool or vomit please call 911 or go to the ER Referrals: Juan Petersen MD [Staff Physician] - 1 Week Tonny Soto MD [Staff Physician] - 2 Weeks Disposition: HOME - Home Medications Comprehensive Discharge Medication List: Ambulatory Orders Ranitidine [Zantac -] 150 mg PO BID 14 Days #28 tablet 01/27/19 This patient is new to me today: Yes Date on this admission: 01/27/19 Emergency Visit: Yes ED Registration Date: 01/25/19 Care time: The patient presented to the Emergency Department on the above date and was hospitalized for further evaluation of their emergent condition. Critical Care patient: No - Discharge Referral Referred to [facility] No
[2019-01-27] MEDS: RANITIDINE HCL 150 MG TABLET (FP) PO SCH (10:59)
[2019-01-27] MEDS: ENOXAPARIN NA (PORCINE) 40 MG/0.4 ML DISP.SYRIN SQ SCH ×2 (10:59→11:01)
--- NOTE | 2019-01-27 11:12 | PN ---
Progress Note, Physician Chief Complaint: Denies CP with ambulation Epigastric pain resolved All enzymes negative - Current Medication List Current Medications: Active Medications Enoxaparin Sodium (Lovenox -) 40 mg SQ DAILY [facility] Last Admin: 01/27/19 11:01 Dose: Not Given Ranitidine HCl (Zantac -) 150 mg PO BID [facility] Last Admin: 01/27/19 10:59 Dose: 150 mg - Objective Vital Signs: Vital Signs Temperature 99 F 01/27/19 10:00 Pulse Rate 78 01/27/19 10:00 Respiratory Rate 20 01/27/19 10:00 Blood Pressure 118/60 01/27/19 10:00 O2 Sat by Pulse Oximetry (%) 100 01/27/19 10:00 Constitutional: Yes: No Distress, Calm Eyes: Yes: Conjunctiva Clear Cardiovascular: Yes: Regular Rate and Rhythm Respiratory: Yes: CTA Bilaterally Gastrointestinal: Yes: Soft Edema: No Peripheral Pulses WNL: Yes Neurological: Yes: Alert, Oriented ...Motor Strength: WNL Labs: CBC, BMP 01/26/19 05:40 01/26/19 05:40 INR, PTT INR 0.98 (0.83-1.09) 01/26/19 05:40 - ....Imaging EKG: Image Reviewed (TELE: NSR) Assessment/Plan IMP: 1. Suspected gastritis secondary to frequent use Excedrin (contains ASA) 2. Abnl baseline ECG, probably his baseline: diffuse early repol changes. REC: 1. D/C Excedrin, NSAIDS 2. Trial PPI or Zantac 3. Serial cardiac enzymes negative and ECGs without evolution. 4. Telemetry negative. ok for d/c home with close outpt f/u for echo. Discussed w/ patient, office info/card given
--- NOTE | 2019-01-27 13:02 | EKG ---
Test Reason : Blood Pressure : / mmHG Vent. Rate : 082 BPM Atrial Rate : 082 BPM P-R Int : 154 ms QRS Dur : 088 ms QT Int : 370 ms P-R-T Axes : 040 010 001 degrees QTc Int : 432 ms NORMAL SINUS RHYTHM VOLTAGE CRITERIA FOR LEFT VENTRICULAR HYPERTROPHY ST ELEVATION, CONSIDER EARLY REPOLARIZATION, PERICARDITIS, OR INJURY ABNORMAL ECG WHEN COMPARED WITH ECG OF 26-JAN-2019 02:29, NO SIGNIFICANT CHANGE WAS FOUND Confirmed by RENNY GARCIA MD ([id number]) on 01/27/2019 1:02:34 PM Referred By: Debby WAGNER Confirmed By:RENNY GARCIA MD
--- NOTE | 2019-01-27 15:30 | PN ---
Teaching Attending Note Name of Resident: Yariel Conner ATTENDING PHYSICIAN STATEMENT I saw and evaluated the patient. I reviewed the resident's note and discussed the case with the resident. I agree with the resident's findings and plan as documented. SUBJECTIVE: Patient has no new complains, comfortable, no chest pain or palpitations. OBJECTIVE: Vital Signs Temperature 99 F 01/27/19 10:00 Pulse Rate 78 01/27/19 10:00 Respiratory Rate 20 01/27/19 10:00 Blood Pressure 118/60 01/27/19 10:00 O2 Sat by Pulse Oximetry (%) 100 01/27/19 10:00 GENERAL: The patient is awake, alert, and fully oriented, in no acute distress. HEAD: Normal with no signs of trauma. EYES: PERRL, extraocular movements intact, sclera anicteric, conjunctiva clear. ENT: Ears normal, oropharynx clear without exudates, moist mucous membranes. NECK: Trachea midline, full range of motion, supple. LUNGS: Breath sounds equal, clear to auscultation bilaterally, no wheezes, no crackles, no accessory muscle use. HEART: Regular rate and rhythm, S1, S2 without murmur, rub or gallop. ABDOMEN: Soft, nontender, nondistended, normoactive bowel sounds, no guarding, no rebound, no hepatosplenomegaly, no masses. EXTREMITIES: 2+ pulses, warm, well-perfused, no edema. NEUROLOGICAL: Cranial nerves II through XII grossly intact. Normal speech, gait not observed. PSYCH: Normal mood, normal affect. SKIN: Warm, dry, normal turgor, no rashes or lesions noted CBCD WBC 5.0 K/mm3 (4.0-10.0) 01/26/19 05:40 RBC 6.14 M/mm3 (4.00-5.60) H 01/26/19 05:40 Hgb 14.4 GM/dL (11.7-16.9) 01/26/19 05:40 Hct 45.2 % (35.4-49) 01/26/19 05:40 MCV 73.7 fl (80-96) L 01/26/19 05:40 MCHC 31.8 g/dl (32.0-35.9) L 01/26/19 05:40 RDW 14.9 % (11.9-15.9) 01/26/19 05:40 Plt Count 242 K/MM3 (134-434) 01/26/19 05:40 MPV 8.8 fl (7.5-11.1) 01/26/19 05:40 CMP Sodium 137 mmol/L (136-145) 01/26/19 05:40 Potassium 4.6 mmol/L (3.5-5.1) 01/26/19 05:40 Chloride 104 mmol/L (98-107) 01/26/19 05:40 Carbon Dioxide 27 mmol/L (21-32) 01/26/19 05:40 Anion Gap 6 MMOL/L (8-16) L 01/26/19 05:40 BUN 11.2 mg/dL (7-18) 01/26/19 05:40 Creatinine 0.8 mg/dL (0.55-1.3) 01/26/19 05:40 Random Glucose 99 mg/dL (74-106) 01/26/19 05:40 Calcium 9.1 mg/dL (8.5-10.1) 01/26/19 05:40 Total Bilirubin 0.4 mg/dL (0.2-1) 01/26/19 05:40 AST 28 U/L (15-37) 01/26/19 05:40 ALT 48 U/L (13-61) 01/26/19 05:40 Alkaline Phosphatase 95 U/L (45-117) 01/26/19 05:40 Total Protein 7.5 g/dl (6.4-8.2) 01/26/19 05:40 Albumin 4.2 g/dl (3.4-5.0) 01/26/19 05:40 CARDIAC ENZYMES Creatine Kinase 277 U/L (26-308) 01/26/19 21:25 Troponin I < 0.02 ng/ml (0.00-0.05) 01/26/19 21:25 Home Medications Medication Instructions Recorded Ranitidine [Zantac -] 150 mg PO BID 14 Days #28 tablet 01/27/19 EKG---> reviewed with Assessment and plan: Patient is a 33yo male with no significant past medical history who presented to ED. for having mid-epigastric pain which started after started taking Excedrin for having dental pain. # Midepigastric pain most likely due to having gastritis due to Exedrin/Nsaids use. will start the patient on Zantac po 150mg bid troponins all neg. EKG no change , will dc patient home as per discussion with . #Abnl baseline ECG, probably his baseline: diffuse early repol changes. discharge patient home with follow up visit with within a week for further w/u,
== END 2019-01-27 11:37 | disposition home or self-care (01) ==
LOC: JER 21:05 → INTOOBSV 23:59 → JERBED 23:59 → J4W 01-26 04:23
PROVIDERS: ADMIT Internal Medicine; ATTEND Internal Medicine
DX: R10.13 Epigastric pain (principal); R94.31 Abnormal electrocardiogram [ECG] [EKG]; R07.89 Other chest pain; E66.9 Obesity, unspecified; Z68.32 Body mass index [BMI] 32.0-32.9, adult
CPT/HCPCS: 36415; 71045-TC-FY; 80053; 82550; 82553; 83690; 83735; 84100; 84484; 85025; 85610; 85730; 93005; 93010; 99285-25; G0378